=== PATIENT | female | born 1980 | race Caucasian/White ===

== ENCOUNTER 2019-10-20 15:10 | Emergency (ER) | payer OTHER ==
[2019-10-20 15:24] VITALS: BP 133/75
--- NOTE | 2019-10-20 15:32 | UC ---
Skin Complaint HPI - HPI Summary HPI Summary: 39-year-old female who noticed a rash to her left antecubital area. She states that she gave blood on Saturday, 4 days ago and had a cotton ball with a Band- Aid on however she's never had an allergy to Band-Aids. She was in the shower today when she noticed a rash. She states that it is itchy. - History of Current Complaint Chief Complaint: UCSkin Time Seen by Provider: 10/20/19 15:18 Stated Complaint: RASH Hx Obtained From: Patient Hx Last Menstrual Period: [id number] ?: No Onset/Duration: Gradual Onset Skin Exposure Onset/Duration: Hours Ago Timing: Constant Onset Severity: Mild Current Severity: Mild Pain Intensity: 4 Location: Other - Left arm in the left antecubital area. Character: Pruritus, Redness - The rash itself is red but the surrounding skin is not swollen or red similar to a cellulitis. Aggravating Factor(s): Nothing Alleviating Factor(s): Other - Patient has not tried any treatments, she just came here. Associated Signs & Symptoms: Positive: Negative - Allergy/Home Medications Allergies/Adverse Reactions: Allergies Allergy/AdvReac Type Severity Reaction Status Date / Time No Known Allergies Allergy Verified 06/24/19 10:01 PMH/Surg Hx/FS Hx/Imm Hx Previously Healthy: Yes - Surgical History Surgical History: Yes Surgery Procedure, Year, and Place: [facility] – [place] 06/15 - Family History Known Family History: Positive: Cardiac Disease, Other - Colon cancer, cyst, hypercholesterolemia Negative: Hypertension, Diabetes - Social History Alcohol Use: Occasionally Substance Use Type: None Smoking Status (MU): Never Smoked Tobacco Review of Systems All Other Systems Reviewed And Are Negative: Yes Skin: Positive: Rash - Red Rash left antecubital area with some itching. Is Patient Immunocompromised?: No Physical Exam Triage Information Reviewed: Yes Appearance: Well-Appearing, No Pain Distress, Well-Nourished Vital Signs: Initial Vital Signs Temp 99.0 F 10/20/19 15:16 Pulse 98 10/20/19 15:16 Resp 18 10/20/19 15:16 BP 133/75 10/20/19 15:16 Pulse Ox 98 10/20/19 15:16 Vital Signs Reviewed: Yes Musculoskeletal Exam: Normal Musculoskeletal: Positive: Other: - Full range of motion, good peripheral pulses neuro sensation and capillary refill. Good radial and ulnar pulses. Neurological Exam: Normal Psychological Exam: Normal Skin: Positive: Rashes - Patient has a red rash to the left antecubital area which does not appear to be cellulitis. It appears more to be a contact dermatitis. Many of the areas are pinpoint red areas but not petechial. No axillary or antecubital lymph node enlargement. No Streaking Course/Dx - Course Course Of Treatment: Patient is comfortable here. She has not tried any medications swollen good have her try hydrocortisone cream topically twice a day for the next 24 hours and then if no improvement she is to stop that and start the Medrol Dosepak. She can also take Benadryl as directed. - Diagnoses Provider Diagnosis: Contact dermatitis Discharge ED - Sign-Out/Discharge Documenting (check all that apply): Patient Departure All imaging exams completed and their final reports reviewed: No Studies - Discharge Plan Condition: Good Disposition: HOME Prescriptions: methylPREDNISolone [Medrol Dosepak 4 MG*] 0 mg PO .SEE EMILIANO INSTRUCTION #1 tab Patient Education Materials: Contact Dermatitis (DC) Referrals: Sandi Torres NP [Primary Care Provider] - Additional Instructions: Avoid scratching the area. May take Benadryl as directed every 6 hours for itching. May apply [id number] hydrocortisone cream twice a day to the area. If no improvement stop the hydrocortisone cream and start the Medrol Dosepak. If the area becomes increasingly hot, red, increased tenderness, red streaks up your arm get rechecked by your primary care provider. - Billing Disposition and Condition Condition: GOOD Disposition: Home
== END 2019-10-20 15:46 | disposition home or self-care (01) ==
LOC: UCEAST 15:10
DX: L25.9 Unspecified contact dermatitis, unspecified cause (principal)
CPT/HCPCS: 99212; G0463